=== PATIENT | female | born 1955 | race Hispanic/Latino ===

== ENCOUNTER 2020-10-23 06:56 | Outpatient (CLI) | payer MEDICARE | END 2020-10-23 06:57 | disposition home or self-care (01) | LOC: BICULT 06:56 | DX: I12.9 Hypertensive chronic kidney disease with stage 1 through stage 4 chronic kidney disease, or unspecified chronic kidney disease (principal); N18.9 Chronic kidney disease, unspecified; R80.9 Proteinuria, unspecified | CPT/HCPCS: 76770; 93975 ==